=== PATIENT | male | born 2000 | race Hispanic/Latino ===

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

== ENCOUNTER 2022-12-07 22:23 | Emergency (ER) | payer OTHER ==
[~2022-12-07] VITALS: Ht 157.5 cm; Wt 80.0 kg
[~2022-12-07 22:23] MED LIST: ALLERGY RELF10 M3 PO; PREDNISONE50 MG PO
[2022-12-07 22:38] VITALS: BP 122/70
[2022-12-07] MEDS ORDERED: BACTRIM DS1 TAB PO (22:43)
== END 2022-12-07 23:38 | disposition home or self-care (01) ==
LOC: ED 22:23
DX: L05.91 Pilonidal cyst without abscess (principal)